=== PATIENT | male | born 1985 | race Caucasian/White ===

== ENCOUNTER 2018-01-06 18:41 | Emergency (ER) | payer MEDICAID ==
[~2018-01-06] VITALS: Ht 167.6 cm; Wt 72.1 kg
[2018-01-06 19:09] VITALS: BP 151/100
[2018-01-06] MEDS ORDERED: KETOROLAC 30 MG/ML VIAL IM ONE (20:50)
[2018-01-06 21:56] LABS: BARBITURATE, URINE NEG. ng/ml (NEG <=200); BENZODIAZEPINE, URINE NEG. ng/mL (NEG <=200); CANNABINOID, URINE NEG. ng/mL (NEG <=50); COCAINE, URINE NEG. ng/mL (NEG <=300); OPIATE, URINE NEG. ng/mL (NEG <=2000); PHENCYCLIDINE SCREEN,URINE NEG. ng/mL (NEG <=25)
[2018-01-06 23:00] VITALS: BP 140/85
== END 2018-01-06 23:00 | disposition home or self-care (01) ==
LOC: MED 18:41
DX: G44.209 Tension-type headache, unspecified, not intractable (principal)
CPT/HCPCS: 70450; 80305; 96372; 99285; J1885